=== PATIENT | female | born 2000 ===

== ENCOUNTER 2024-11-23 06:54 | Day surgery (SDC) | payer OTHER ==
[2024-11-20 11:07] LABS: BASO % 0.2 % (0.1-1.2); EOS # 0.06 (0.04-0.54); HEMATOCRIT 41.9 % (34.1-44.9); HEMOGLOBIN 13.6 g/dL (11.2-15.7); LYMPH # 2.05 (1.18-3.74); LYMPH % 34.2 % (19.3-53.1); MONO # 0.57 (0.24-0.82); MONO % 9.5 % (4.7-12.5); NEUT # 3.28 (1.56-6.13); NEUT % 54.8 % (34.0-71.1); PLATELET COUNT 264 K/uL (163-369); RED BLOOD COUNT 4.69 M/uL (3.93-5.22); RED CELL DISTRIBUTION WIDTH 12.3 % (11.6-14.4)
[2024-11-20 11:11] VITALS: BP 122/82
[2024-11-20 11:11] LABS: URINE APPEARANCE Clear; URINE BILIRRUBIN Negative (NEGATIVE); URINE BLOOD Negative; URINE COLOR Yellow; URINE GLUCOSE Negative (NEGATIVE); URINE KETONE Negative (NEGATIVE); URINE LEUKOCYTE Negative; URINE NITRATE Negative; URINE PROTEIN Negative (NEGATIVE); URINE UROBILINOGEN 0.2 E.U./dl
[2024-11-20 11:15] LABS: URINE EPITHELIAL CELLS 12.6 uL (0.0-38.8); URINE WBC 5.6 uL (0.0-23.2)
[2024-11-20 11:18] LABS: URINE RBC 1.7 uL (0.0-20.8)
[2024-11-20 11:42] LABS: INR 1.02; PARTIAL THROMBOPLASTIN TIME 28.2 SECONDS (22.0-34.0); PROTHROMBIN TIME 11.1 SECONDS (9.0-11.5)
[2024-11-20 12:14] LABS: ALBUMIN 3.9 gm/dL (3.4-5.0); BILIRUBIN TOTAL 0.92 mg/dL (0.3-1.2); CALCIUM 9.2 mg/dL (8.5-10.1); CREATININE SERUM 0.88 mg/dL (0.55-1.02); GFR 80.35; GLOBULINA 3.7 G/DL (2.4-3.5); POTASSIUM 4.27 mEq/L (3.5-5.1); TOTAL PROTEIN 7.6 gm/dL (6.4-8.2)
[~2024-11-23] VITALS: Ht 180.3 cm; Wt 124.7 kg
[2024-11-23] MEDS ORDERED: DEXAMETHASONE SODIUM PHOSPHATE 4 MG/ML VIAL ONE (13:07)
== END 2024-11-23 16:50 | disposition home or self-care (01) ==
LOC: CIR.AMB 06:54 → SURH 09:30 → EDSTATUS 09:30 → CIR.AMB 09:30
PROVIDERS: ATTEND Surgery
DX: C73 Malignant neoplasm of thyroid gland (principal)

== ENCOUNTER 2025-01-29 06:50 | Inpatient (IN) | payer OTHER ==
[2025-01-22 09:51] VITALS: BP 120/84
[2025-01-22 10:16] LABS: URINE APPEARANCE Clear; URINE BILIRRUBIN Negative (NEGATIVE); URINE BLOOD Large; URINE COLOR Yellow; URINE GLUCOSE Negative (NEGATIVE); URINE KETONE Trace (NEGATIVE); URINE LEUKOCYTE Trace; URINE NITRATE Negative; URINE PROTEIN Negative (NEGATIVE); URINE UROBILINOGEN 0.2 E.U./dl
[2025-01-22 10:24] LABS: URINE BACTERIA 64.7 uL (0.0-1933); URINE EPITHELIAL CELLS 8.2 uL (0.0-38.8); URINE RBC 5517.6 uL (0.0-20.8); URINE WBC 48.0 uL (0.0-23.2)
[2025-01-22 10:28] LABS: URINE CAST 0.00 uL (0.0-1.40)
[2025-01-22 10:47] LABS: INR 1.01
[2025-01-22 11:11] LABS: ALT/SGPT 32.0 U/L (12-78); AST/SGOT 38.0 U/L (15-37); BILIRUBIN TOTAL 0.85 mg/dL (0.3-1.2); BUN CREA RATIO 20.0 (7.0-25.0); CREATININE SERUM 0.87 mg/dL (0.55-1.02); GFR 81.42; GLOBULINA 3.6 G/DL (2.4-3.5); GLUCOSE FASTING 100.0 mg/dL (65-100); OSMOLALITY SERUM 285.0 MOSM/KG (275-295)
[2025-01-22 11:44] LABS: BASO % 0.5 % (0.1-1.2); EOS # 0.06 (0.04-0.54); EOS % 1.1 % (0.7-7.0); LYMPH # 1.67 (1.18-3.74); LYMPH % 30.6 % (19.3-53.1); MEAN PLATELET VOLUME 11.10 fl (9.4-12.4); MONO # 0.53 (0.24-0.82); MONO % 9.7 % (4.7-12.5); NEUT # 3.16 (1.56-6.13); NEUT % 57.9 % (34.0-71.1); RED CELL DISTRIBUTION WIDTH 12.7 % (11.6-14.4)
[~2025-01-29] VITALS: Ht 180.3 cm; Wt 79.4 kg
[2025-01-29] MEDS ORDERED: DEXAMETHASONE SODIUM PHOSPHATE 4 MG/ML VIAL IV ONE (18:30)
[2025-01-29] MEDS ORDERED: ONDANSETRON HCL 2 MG/ML VIAL IV PRN (19:15)
[2025-01-29] MEDS ORDERED: ENALAPRILAT DIHYDRATE 1.25 MG/ML VIAL IV PRN (19:15)
[2025-01-29] MEDS ORDERED: PANTOPRAZOLE SODIUM 40 MG/VIAL VIAL IV PUSH SCH (21:00)
[2025-01-30] MEDS ORDERED: TRAMADOL HCL 50 MG TABLET PO SCH (01:00)
[2025-01-30] MEDS ORDERED: ACETAMINOPHEN 500 MG GEL..CAP PO SCH (01:00)
[2025-01-30] MEDS ORDERED: DIPHENHYDRAMINE HCL 30 MG,LIDOCAINE HCL 30 ML,MAG HYDROX/ALUMINUM HYD/SIMETH 30 ML PO SCH (01:00)
[2025-01-30 02:26] VITALS: BP 127/82; O2SAT 100
[2025-01-30] MEDS ORDERED: LEVOTHYROXINE SODIUM 175 MCG TABLET PO SCH (07:00)
[2025-01-30 08:15] VITALS: BP 129/76; O2SAT 96
[2025-01-30] MEDS ORDERED: DIPHENHYDRAMINE HCL 75 MG,LIDOCAINE HCL 30 ML,MAG HYDROX/ALUMINUM HYD/SIMETH 30 ML PO SCH (09:00)
[2025-01-30] MEDS ORDERED: CYCLOBENZAPRINE HCL 5 MG TABLET PO SCH (17:00)
== END 2025-01-30 13:43 | disposition home or self-care (01) | DRG 627 ==
LOC: CIR.AMB 06:50 → SURG 20:41
PROVIDERS: ADMIT Surgery; ATTEND Surgery
PROC: 0GTG0ZZ Resection of Left Thyroid Gland Lobe, Open Approach (ICD-10-PCS; principal; 2025-01-29 09:45)
DX: C73 Malignant neoplasm of thyroid gland (principal)